=== PATIENT | male | born 1965 | race Caucasian/White ===

== ENCOUNTER 2016-08-17 18:32 | Inpatient (IN) | payer MEDICARE ==
[~2016-08-17] VITALS: Ht 185.4 cm; Wt 126.1 kg
[~2016-08-17 18:32] MED LIST: ALBU0.63 NEB; ALPR0.5T3 PO; ASPI81TA21 PO; ATOR80TA41 PO; AZIT250T74 PO; BENZ1CAP34 PO; CARV12.52 PO; CYCL1PAK PO; FURO20 PO; LISI-363 PO; METF-324 PO; NOVO7030P2 SQ; POTA-243 PO; TAB-TAB PO; TRAV0.00 EACH EYE; VITA-13 PO
[2016-08-17 18:34] VITALS: BP 176/101; PULSE 97; RESP 20; TEMP 98.7; O2SAT 99
[2016-08-17] MEDS ORDERED: METF1000 PO (18:42)
[2016-08-17] MEDS ORDERED: FURO80TA PO (18:42)
[2016-08-17] MEDS ORDERED: ATOR1TAB18 PO (18:42)
[2016-08-17] MEDS ORDERED: POTA10CA PO (18:42)
[2016-08-17] MEDS ORDERED: CARV12.52 PO (18:42)
[2016-08-17] MEDS ORDERED: LISI-515 PO (18:42)
[2016-08-17] MEDS ORDERED: ASPI1TAB69 PO (18:42)
[2016-08-17] MEDS ORDERED: TRAV0.00 EACH EYE (18:42)
[2016-08-17] MEDS ORDERED: ALPR0.5T3 PO (18:42)
[2016-08-17] MEDS ORDERED: NOVO7030P2 SQ (18:42)
--- NOTE | 2016-08-17 18:56 | PD ---
HPI Chief Complaint: Cardiac Complaint Time Seen by Provider: 18:56 Travel History International Travel<30 days: No Contact w/Intl Traveler<30days: No Traveled to known affect area: No History of Present Illness HPI 51-year-old male with history of CAD, CHF, ischemic cardiomyopathy with AICD presents to the emergency department by EMS for evaluation of AICD firing. The patient states that about 30 minutes ago he was sitting at a birthday constitution party talking to someone when he felt a shock all over his body that lasted about 1 second. States that afterward he began to have headache. States that he thinks his AICD may have fired, his device has never fired before. He denies any preceding symptoms, states he was feeling well. He denies any chest pain, shortness of breath, nausea, vomiting, abdominal pain, lightheadedness, dizziness, diaphoresis, numbness or tingling, weakness. He admits that he has not taken any of his medications for the past 10 days "just because I didn't feel like it." PCP Dr. Raphael. Customer Experience Leader Dr. Jose Monae. No other complaints. 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) Coronary Stent: Yes (x2) Social History Alcohol Use: No (quit 2000) Tobacco Use: Yes (PPD) Substance Use: No Allergies-Medications (Allergen,Severity, Reaction): Coded Allergies: Mevacor (Verified Allergy, Severe, 08/17/16) Reported Meds & Prescriptions Reported Meds & Active Scripts Active Reported Travatan Z Opth Drops (Travoprost) 0.004 % Soln 1 Drop EACH EYE HS Potassium Chloride ER (Potassium Chloride) 10 Meq Cap 10 Meq PO DAILY Metformin (Metformin HCl) 1,000 Mg Tab 1,000 Mg PO BIDPC With meals Lisinopril 20 Mg Tab 20 Mg PO DAILY Novolin 70-30 Inj (Insulin Human Isoph/Insulin Regular) 1,000 Unit/10 Ml Vial 1 Units SQ Furosemide 80 Mg Tab 80 Mg PO DAILY Carvedilol 12.5 Mg Tab 12.5 Mg PO BID Atorvastatin (Atorvastatin Calcium) 80 Mg Tab 80 Mg PO HS Aspirin 81 Mg Tabdr 81 Mg PO DAILY Alprazolam 0.5 Mg Tab 0.5 Mg PO BID PRN Review of Systems Except as stated in HPI: all other systems reviewed are Neg Physical Exam Narrative GENERAL: Well-nourished and well-developed pleasant patient in no acute distress who is nontoxic appearing. SKIN: Warm and dry. HEAD: Normocephalic and atraumatic. EYES: No injection, drainage, or hyphema noted. PERRLA. EOMI. ENT: No nasal drainage noted. Oropharynx is clear. NECK: Supple and the trachea is midline. CARDIOVASCULAR: Regular rate and rhythm. RESPIRATORY: Breath sounds are equal bilaterally with no accessory muscle use, wheezing, rhonchi, or crackles. GASTROINTESTINAL: Abdomen is soft, non-tender, and nondistended. MUSCULOSKELETAL: No obvious deformities, swelling, cyanosis, or ecchymosis is present throughout the upper and lower extremities. Patient has full range of motion without any signs of neurovascular compromise. NEUROLOGICAL: Awake, alert, and oriented. Normal speech and gait. Cranial nerves are grossly intact. Data Data Last Documented VS Vital Signs Date Time Temp Pulse Resp B/P Pulse Ox O2 Delivery O2 Flow Rate FiO2 08/17/16 21:45 97 20 167/105 97 Nasal Cannula 2 08/17/16 18:34 98.7 Orders Electrocardiogram (08/17/16 18:55) B-Type Natriuretic Peptide (08/17/16 18:55) Ckmb (Isoenzyme) Profile (08/17/16 18:55) Complete Blood Count With Diff (08/17/16 18:55) Comprehensive Metabolic Panel (08/17/16 18:55) Magnesium (Mg) (08/17/16 18:55) Prothrombin Time / Inr (Pt) (08/17/16 18:55) Act Partial Throm Time (Ptt) (08/17/16 18:55) Troponin I (08/17/16 18:55) Chest, Single Ap (08/17/16 18:55) Ecg Monitoring (08/17/16 18:55) Iv Access Insert/Monitor (08/17/16 18:55) Oximetry (08/17/16 18:55) Aspirin (Aspirin) (08/17/16 19:00) Sodium Chloride 0.9% Flush (Ns Flush) (08/17/16 19:00) CKMB (08/17/16 19:05) CKMB% (08/17/16 19:05) Electrocardiogram (08/17/16 20:53) Lorazepam Inj (Ativan Inj) (08/17/16 21:00) Lorazepam Inj (Ativan Inj) (08/17/16 21:00) Amiodarone Inj (Cordarone Inj) (08/17/16 21:00) Sodium Chloride 0.9% Flush (Ns Flush) (08/17/16 21:00) Lorazepam Inj (Ativan Inj) (08/17/16 21:15) Amiodarone Inj (Cordarone Inj) (08/17/16 21:01) Potassium Chlor 20 Meq Premix (Kcl 20 Me (08/17/16 21:15) Amiodarone Inj (Cordarone Inj) (08/17/16 21:30) Apixaban (Eliquis) (08/17/16 21:45) Metoprolol Tartrate (Lopressor) (08/17/16 21:45) Admit Order (Ed Use Only) (08/17/16 21:51) Consult Cardiology (08/17/16 ) Labs Laboratory Tests Test 08/17/16 19:05 White Blood Count 13.4 TH/MM3 Red Blood Count 5.17 MIL/MM3 Hemoglobin 15.1 GM/DL Hematocrit 43.3 % Mean Corpuscular Volume 83.7 FL Mean Corpuscular Hemoglobin 29.3 PG Mean Corpuscular Hemoglobin 35.0 % Concent Red Cell Distribution Width 14.5 % Platelet Count 242 TH/MM3 Mean Platelet Volume 8.8 FL Neutrophils (%) (Auto) 79.5 % Lymphocytes (%) (Auto) 10.8 % Monocytes (%) (Auto) 7.8 % Eosinophils (%) (Auto) 1.3 % Basophils (%) (Auto) 0.6 % Neutrophils # (Auto) 10.6 TH/MM3 Lymphocytes # (Auto) 1.4 TH/MM3 Monocytes # (Auto) 1.0 TH/MM3 Eosinophils # (Auto) 0.2 TH/MM3 Basophils # (Auto) 0.1 TH/MM3 CBC Comment DIFF FINAL Differential Comment Prothrombin Time 12.0 SEC Prothromb Time International 1.1 RATIO Ratio Activated Partial 25.9 SEC Thromboplast Time Sodium Level 134 MEQ/L Potassium Level 3.3 MEQ/L Chloride Level 99 MEQ/L Carbon Dioxide Level 27.1 MEQ/L Anion Gap 8 MEQ/L Blood Urea Nitrogen 11 MG/DL Creatinine 1.02 MG/DL Estimat Glomerular Filtration 77 ML/MIN Rate Random Glucose 274 MG/DL Calcium Level 8.4 MG/DL Magnesium Level 2.0 MG/DL Total Bilirubin 1.3 MG/DL Aspartate Amino Transf 13 U/L (AST/SGOT) Alanine Aminotransferase 21 U/L (ALT/SGPT) Alkaline Phosphatase 90 U/L Total Creatine Kinase 115 U/L Creatine Kinase MB 1.5 NG/ML Troponin I 0.03 NG/ML B-Type Natriuretic Peptide 837 PG/ML Total Protein 7.1 GM/DL Albumin 3.7 GM/DL MDM Medical Decision Making Medical Screen Exam Complete: Yes Emergency Medical Condition: Yes Differential Diagnosis AICD firing versus arrhythmia versus ACS versus CHF versus medication noncompliance Narrative Course 51-year-old male presents to the emergency department for evaluation of possible AICD firing. Patient is afebrile, vital signs are stable. He is slightly hypertensive with a blood pressure 176/101, admits to not taking any of his medications for the past 10 days. Physical examination is unremarkable. Patient is administered aspirin 325 mg orally. IV access is obtained, labs have been drawn and sent. [facility] was paged to come interrogate the device. CBC shows elevated white blood cell count of 13.4 CMP shows mild hypokalemia of 3.3 and hyperglycemia 274. Troponin is 0.03. BNP is elevated at 837. Coags are unremarkable. Chest x-ray is negative for any acute abnormalities. The medical information specialist authorization representative for [facility] interrogated the device and discerned that the patient was in fact shocked after going into A. fib with RVR with a ventricular rate of up to 181 bpm for 11 seconds. 2105 Patient was shocked again 4 times in about 10 minutes. Telemetry looks like wide complex V tach 160-200 bpm. He is administered Ativan 2mg IV and Amiodarone 150 mg IV. Patient has remained stable without any further shocks. The device was interrogated and found to be again Atrial Fibrillation with RVR with aberrant conduction. Dr. Whaley was consulted by my attending physician and recommends Amiodarone drip, Lopressors 50 mg BID, Eliquis 5 mg BID and admission to [facility]. I discussed the case with my attending physician Dr. Sheffield who is aware of the patients history, physical examination findings, and treatment plan. Physician Communication Physician Communication Dr. Sheffield spoke with Dr. Whaley who requests Amio drip, Eliquis, Lopressor and [facility] admission. I spoke with Dr. Lewis [facility] who agrees to admit the patient to their service. Diagnosis Primary Impression: Atrial fibrillation with RVR Additional Impression: AICD discharge Admitting Information Admitting Physician Requests: Admit Shira Ayoub Aug 17, 2016 18:56
[2016-08-17] MEDS ORDERED: SODIUM CHLORIDE 0.9% FLUSH 5 ML FLUSH IVF PRN ×2 (19:00→21:00)
[2016-08-17] MEDS ORDERED: ASPIRIN 325 MG TAB PO ONE (19:00)
[2016-08-17 19:01] VITALS: O2SAT 96
[2016-08-17 19:10] VITALS: BP 167/102; PULSE 90; RESP 16; O2SAT 96
--- NOTE | 2016-08-17 19:16 | RADRPT ---
EXAM DATE/TIME: 08/17/2016 19:04 [place] COMPARISON: CHEST SINGLE AP, November 14, 2015, 19:33. INDICATIONS : Chest pains. MEDICAL HISTORY : Cardiovascular disease. SURGICAL HISTORY : Defiberator, Stents placed in 1999 ENCOUNTER: Initial ACUITY: 1 day PAIN SCORE: 2/10 LOCATION: Left chest FINDINGS: There is some linear atelectasis along the minor fissure on the right side. No consolidative infiltr ate seen. Both hemidiaphragms are well delineated. The heart is mildly enlarged, similar in size an d configuration to prior exam 2016. Cardiac pacer leads in right atrium right ventricle. CONCLUSION: Mild atelectasis right midlung. Cardiomegaly, stable, without radiographic evidence of congestive fa ilure. Clemente Horton MD on August 17, 2016 at 19:14 Board Certified Radiologist. This report was verified electronically.
[2016-08-17 19:40] LABS: AUTOMATED NEUTROPHIL # 10.6 TH/MM3 (1.8-7.7); BASOPHIL # 0.1 TH/MM3 (0-0.2); BASOPHIL % 0.6 % (0.0-2.0); EOSINOPHIL # 0.2 TH/MM3 (0-0.4); EOSINOPHIL % 1.3 % (0.0-4.0); HEMATOCRIT 43.3 % (39.0-51.0); HEMO FLAGS DIFF FINAL; LYMPH % 10.8 % (9.0-44.0); LYMPHOCYTE # 1.4 TH/MM3 (1.0-4.8); MEAN CELL VOLUME 83.7 FL (80.0-100.0); MEAN CORPUSCULAR HEMOGLOBIN 29.3 PG (27.0-34.0); MONO % 7.8 % (0.0-8.0); NEUT % 79.5 % (16.0-70.0); PLATELET COUNT 242 TH/MM3 (150-450); RED BLOOD COUNT 5.17 MIL/MM3 (4.50-5.90); RED CELL DISTRIBUTION WIDTH 14.5 % (11.6-17.2); WHITE BLOOD COUNT 13.4 TH/MM3 (4.0-11.0)
[2016-08-17 19:46] LABS: APTT (PATIENT) 25.9 SEC (24.3-30.1); INTERNATIONAL NORMALIZED RATIO 1.1 RATIO
[2016-08-17 19:47] LABS: ANION GAP 8 MEQ/L (5-15); AST (GOT) 13 U/L (15-37); BICARBONATE 27.1 MEQ/L (21.0-32.0); BLOOD UREA NITROGEN 11 MG/DL (7-18); CHLORIDE 99 MEQ/L (98-107); GLOMERULAR FILTRATION RATE 77 ML/MIN (>89); POTASSIUM 3.3 MEQ/L (3.5-5.1); SODIUM (NA) 134 MEQ/L (136-145)
[2016-08-17 19:52] LABS: ALKALINE PHOSPHATASE 90 U/L (45-117); ALT (GPT) 21 U/L (12-78); CREATINE KINASE 115 U/L (39-308); TOTAL BILIRUBIN ADULT 1.3 MG/DL (0.2-1.0)
[2016-08-17 20:04] LABS: CKMB 1.5 NG/ML (0.5-3.6)
[2016-08-17] MEDS ORDERED: AMIODARONE INJ 150 MG in DEXTROSE 5% IN WATER 100ML INJ 97 ML IV ONE ×2 (21:00)
[2016-08-17] MEDS ORDERED: LORazepam 2 MG/ML VIAL IV PUSH ONE ×2 (21:00→21:15)
[2016-08-17] MEDS ORDERED: LORazepam 2 MG/ML VIAL ONE (21:00)
[2016-08-17] MEDS ORDERED: AMIODARONE HCL 150 MG/3 ML VIAL ONE (21:01)
[2016-08-17] MEDS ORDERED: POTASSIUM CHLOR 20 MEQ PREMIX 100 ML IV ONE (21:15)
--- NOTE | 2016-08-17 21:16 | PD ---
Physical Exam Narrative Patient was seen and examined with my neurosurgical physician assistant. Data Data Last Documented VS Vital Signs Date Time Temp Pulse Resp B/P Pulse Ox O2 Delivery O2 Flow Rate FiO2 08/17/16 21:45 97 20 167/105 97 Nasal Cannula 2 08/17/16 18:34 98.7 Orders Electrocardiogram (08/17/16 18:55) B-Type Natriuretic Peptide (08/17/16 18:55) Ckmb (Isoenzyme) Profile (08/17/16 18:55) Complete Blood Count With Diff (08/17/16 18:55) Comprehensive Metabolic Panel (08/17/16 18:55) Magnesium (Mg) (08/17/16 18:55) Prothrombin Time / Inr (Pt) (08/17/16 18:55) Act Partial Throm Time (Ptt) (08/17/16 18:55) Troponin I (08/17/16 18:55) Chest, Single Ap (08/17/16 18:55) Ecg Monitoring (08/17/16 18:55) Iv Access Insert/Monitor (08/17/16 18:55) Oximetry (08/17/16 18:55) Aspirin (Aspirin) (08/17/16 19:00) Sodium Chloride 0.9% Flush (Ns Flush) (08/17/16 19:00) CKMB (08/17/16 19:05) CKMB% (08/17/16 19:05) Electrocardiogram (08/17/16 20:53) Lorazepam Inj (Ativan Inj) (08/17/16 21:00) Lorazepam Inj (Ativan Inj) (08/17/16 21:00) Amiodarone Inj (Cordarone Inj) (08/17/16 21:00) Sodium Chloride 0.9% Flush (Ns Flush) (08/17/16 21:00) Lorazepam Inj (Ativan Inj) (08/17/16 21:15) Amiodarone Inj (Cordarone Inj) (08/17/16 21:01) Potassium Chlor 20 Meq Premix (Kcl 20 Me (08/17/16 21:15) ^ Medication Alert (08/17/16 21:22) ^ Discontinue (08/17/16 21:22) Amiodarone Inj (Cordarone Inj) (08/17/16 21:30) Vital Signs (Adult) KD.Q4H (08/17/16 21:22) Apixaban (Eliquis) (08/17/16 21:45) Metoprolol Tartrate (Lopressor) (08/17/16 21:45) Admit Order (Ed Use Only) (08/17/16 21:51) Consult Cardiology (08/17/16 ) Labs Laboratory Tests Test 08/17/16 19:05 White Blood Count 13.4 TH/MM3 Red Blood Count 5.17 MIL/MM3 Hemoglobin 15.1 GM/DL Hematocrit 43.3 % Mean Corpuscular Volume 83.7 FL Mean Corpuscular Hemoglobin 29.3 PG Mean Corpuscular Hemoglobin 35.0 % Concent Red Cell Distribution Width 14.5 % Platelet Count 242 TH/MM3 Mean Platelet Volume 8.8 FL Neutrophils (%) (Auto) 79.5 % Lymphocytes (%) (Auto) 10.8 % Monocytes (%) (Auto) 7.8 % Eosinophils (%) (Auto) 1.3 % Basophils (%) (Auto) 0.6 % Neutrophils # (Auto) 10.6 TH/MM3 Lymphocytes # (Auto) 1.4 TH/MM3 Monocytes # (Auto) 1.0 TH/MM3 Eosinophils # (Auto) 0.2 TH/MM3 Basophils # (Auto) 0.1 TH/MM3 CBC Comment DIFF FINAL Differential Comment Prothrombin Time 12.0 SEC Prothromb Time International 1.1 RATIO Ratio Activated Partial 25.9 SEC Thromboplast Time Sodium Level 134 MEQ/L Potassium Level 3.3 MEQ/L Chloride Level 99 MEQ/L Carbon Dioxide Level 27.1 MEQ/L Anion Gap 8 MEQ/L Blood Urea Nitrogen 11 MG/DL Creatinine 1.02 MG/DL Estimat Glomerular Filtration 77 ML/MIN Rate Random Glucose 274 MG/DL Calcium Level 8.4 MG/DL Magnesium Level 2.0 MG/DL Total Bilirubin 1.3 MG/DL Aspartate Amino Transf 13 U/L (AST/SGOT) Alanine Aminotransferase 21 U/L (ALT/SGPT) Alkaline Phosphatase 90 U/L Total Creatine Kinase 115 U/L Creatine Kinase MB 1.5 NG/ML Troponin I 0.03 NG/ML B-Type Natriuretic Peptide 837 PG/ML Total Protein 7.1 GM/DL Albumin 3.7 GM/DL MDM Supervised Visit with ZACHARIAH: Yes Differential Diagnosis Differential diagnosis including A. fib with RVR, ventricular tachycardia. Narrative Course Patient had 4 more episodes of defibrillator went off on him. The rhythm was wide complex tachycardia rate between 160 and 200. Ativan 1 mg IV given. Ativan 1 mg IV repeated. Amiodarone 150 mg IV given over 10 minutes. Amiodarone drip started. I spoke with Dr. devine, manager educational on-call. Advised Lopressor and Eliquis and [facility] admission. Nick Sheffield MD Aug 17, 2016 21:16
[2016-08-17 21:21] VITALS: BP 153/90; PULSE 97; RESP 16; O2SAT 99
[2016-08-17 21:45] VITALS: BP 167/105; PULSE 97; RESP 20; O2SAT 97
[2016-08-17] MEDS ORDERED: METOPROLOL TARTRATE 50 MG TAB PO ONE (21:45)
[2016-08-17] MEDS ORDERED: APIXABAN 5 MG TABLET PO ONE (21:45)
[2016-08-17] MEDS: AMIODARONE INJ 450 MG in DEXTROSE 5% IN WATE(EXCEL) INJ 241 ML IV SCH ×2 (21:47)
[2016-08-17] MEDS ORDERED: BISACODYL 10 MG SUPP PR PRN (23:15)
[2016-08-17] MEDS ORDERED: NALOXONE HCL 0.4 MG/ML AMP IV PRN (23:15)
[2016-08-17] MEDS ORDERED: SODIUM CHLORIDE 0.9% FLUSH 5 ML FLUSH FLUSH PRN (23:15)
--- NOTE | 2016-08-17 23:25 | HHI.HP ---
HPI Service [facility] Hospitalists Primary Care Physician Griffin Foley Jr, MD Admission Diagnosis Atrial Fibrillation w/ RVR, AICD Discharge Chief Complaint: AICD discharge Travel History International Travel<30 Days: No Contact w/Intl Traveler <30 Da: No Traveled to Known Affected Are: No History of Present Illness 51-year-old male with history of CAD, CHF, ischemic cardiomyopathy with AICD presents to the emergency department by EMS for evaluation of AICD firing. The patient states that about 30 minutes before coming to er, he was sitting at a birthday democrat talking to someone when he felt a shock all over his body that lasted about 1 second. States that afterward he began to have headache. States that he thinks his AICD may have fired, his device has never fired before. He denies any preceding symptoms, states he was feeling well. He denies any chest pain, shortness of breath, nausea, vomiting, abdominal pain, lightheadedness, dizziness, diaphoresis, numbness or tingling, weakness. He admits that he has not taken any of his medications for the past 10 days "just because I didn't feel like it." On interrogation of device had episode of atrial fib with rate >180 also some wide complex suggestive v tach ,cardiology consulted and started on amiodarone drip and b shravan and eliquis 5 bid and admitted. Review of Systems Cardiovascular: COMPLAINS OF: Palpitations Past Family Social History Past Medical History cad,s/p mi,dm,hypertension,parkinson,pneumonia,thyroid disease hyperlipid,chf, copd, Past Surgical History pacer/defib,stent times 2 Reported Medications novolin insulin,[id number] bid,lisinopril 20,lasix 80 [id number],xanax .5, Allergies: Coded Allergies: Mevacor (Verified Allergy, Severe, 08/17/16) Social History hx etoh in past smokes 1 ppd Physical Exam Vital Signs Vital Signs Date Time Temp Pulse Resp B/P Pulse Ox O2 Delivery O2 Flow Rate FiO2 08/17/16 21:45 97 20 167/105 97 Nasal Cannula 2 08/17/16 21:21 97 16 153/90 99 Nasal Cannula 2 08/17/16 19:10 90 16 167/102 96 Room Air 08/17/16 19:01 96 Room Air 08/17/16 18:34 98.7 97 20 176/101 99 Physical Exam GENERAL: This is a well-nourished, well-developed patient, in no apparent distress. SKIN: No rashes, ecchymoses or lesions. Cool and dry. HEAD: Atraumatic. Normocephalic. No temporal or scalp tenderness. EYES: Pupils equal round and reactive. Extraocular motions intact. No scleral icterus. No injection or drainage. ENT: Nose without bleeding, purulent drainage or septal hematoma. Throat without erythema, tonsillar hypertrophy or exudate. Uvula midline. Airway patent. NECK: Trachea midline. No JVD or lymphadenopathy. Supple, nontender, no meningeal signs. CARDIOVASCULAR: irreg and rhythm without murmurs, gallops, or rubs. RESPIRATORY: Clear to auscultation. Breath sounds equal bilaterally. No wheezes , rales, or rhonchi. GASTROINTESTINAL: Abdomen soft, non-tender, nondistended. No hepato-splenomegaly , or palpable masses. No guarding. MUSCULOSKELETAL: Extremities without clubbing, cyanosis, or edema. No joint tenderness, effusion, or edema noted. No calf tenderness. Negative Homans sign bilaterally. NEUROLOGICAL: Awake and alert. Cranial nerves II through XII intact. Motor and sensory grossly within normal limits. Five out of 5 muscle strength in all muscle groups. Normal speech. Laboratory Laboratory Tests Test 08/17/16 19:05 White Blood Count 13.4 Red Blood Count 5.17 Hemoglobin 15.1 Hematocrit 43.3 Mean Corpuscular Volume 83.7 Mean Corpuscular Hemoglobin 29.3 Mean Corpuscular Hemoglobin 35.0 Concent Red Cell Distribution Width 14.5 Platelet Count 242 Mean Platelet Volume 8.8 Neutrophils (%) (Auto) 79.5 Lymphocytes (%) (Auto) 10.8 Monocytes (%) (Auto) 7.8 Eosinophils (%) (Auto) 1.3 Basophils (%) (Auto) 0.6 Neutrophils # (Auto) 10.6 Lymphocytes # (Auto) 1.4 Monocytes # (Auto) 1.0 Eosinophils # (Auto) 0.2 Basophils # (Auto) 0.1 CBC Comment DIFF FINAL Differential Comment Prothrombin Time 12.0 Prothromb Time International 1.1 Ratio Activated Partial 25.9 Thromboplast Time Sodium Level 134 Potassium Level 3.3 Chloride Level 99 Carbon Dioxide Level 27.1 Anion Gap 8 Blood Urea Nitrogen 11 Creatinine 1.02 Estimat Glomerular Filtration 77 Rate Random Glucose 274 Calcium Level 8.4 Magnesium Level 2.0 Total Bilirubin 1.3 Aspartate Amino Transf 13 (AST/SGOT) Alanine Aminotransferase 21 (ALT/SGPT) Alkaline Phosphatase 90 Total Creatine Kinase 115 Creatine Kinase MB 1.5 Troponin I 0.03 B-Type Natriuretic Peptide 837 Total Protein 7.1 Albumin 3.7 Result Diagram: 08/17/16 1905 08/17/16 190 Imaging Last 24 hours Impressions Chest X-Ray 08/17/16 1855 Signed Impressions: Service Date/Time: Wednesday, August 17, 2016 19:04 - CONCLUSION: Mild atelectasis right midlung. Cardiomegaly, stable, without radiographic evidence of congestive failure. Clemente Horton MD Course in er received amidarone and ativan Assessment and Plan Problem List: (1) AICD discharge Status: Acute Plan: multiple firing of AICD probably due to patient stopping his medications 10 days ago in afib started on amidarone drip and lopressor 50 bid and eliquis 5 bid with cardiology consult (2) Atrial fibrillation with RVR Status: Acute Plan: as above (3) Hypertension Status: Chronic Plan: restart home meds (4) Diabetic nephropathy Status: Chronic Plan: sliding scale and restart metformin Assessment and Plan as above has elevation bnp probably due to stopping medications restart diuretic Code Status full Discussed Condition With patient Physician Certification 2 Midnight Certification Type: Admission for Inpatient Services Order for Inpatient Services The services are ordered in accordance with Medicare regulations or non- Medicare payer requirements, as applicable. In the case of services not specified as inpatient-only, they are appropriately provided as inpatient services in accordance with the 2-midnight benchmark. Estimated LOS (days): 3 3 days is the estimated time the patient will need to remain in the hospital, assuming treatment plan goals are met and no additional complications. Post-Hospital Plan: Not yet determined Josemanuel Lewis MD Aug 17, 2016 23:25
[2016-08-17 23:30] VITALS: BP 150/89; PULSE 80; RESP 18; O2SAT 96
[2016-08-17] MEDS ORDERED: DEXTROSE 50% IN WATER 50 ML VIAL(D50) IV PUSH PRN (23:45)
[2016-08-17] MEDS ORDERED: GLUCAGON 1 MG/ML VIAL OTHER PRN (23:45)
[2016-08-18] VITALS (25 sets, daily range): BP systolic 117–158; BP diastolic 75–96; PULSE 61–79; RESP 16–20; TEMP 97.7–98.5; O2SAT 92–100
[2016-08-18] MEDS: ALPRAZolam 0.5 MG TAB PO PRN (05:49)
[2016-08-18] MEDS: INSULIN NovoLIN REGULAR SUPPLEMENTAL SCALE SQ SCH ×2 (05:50→13:22)
[2016-08-18] MEDS: AMIODARONE INJ 450 MG in DEXTROSE 5% IN WATE(EXCEL) INJ 241 ML IV SCH ×2 (05:53)
[2016-08-18 07:42] LABS: AUTOMATED NEUTROPHIL # 8.6 TH/MM3 (1.8-7.7); BASOPHIL # 0.1 TH/MM3 (0-0.2); EOSINOPHIL # 0.2 TH/MM3 (0-0.4); EOSINOPHIL % 1.6 % (0.0-4.0); HEMATOCRIT 43.3 % (39.0-51.0); HEMO FLAGS DIFF FINAL; LYMPH % 13.7 % (9.0-44.0); LYMPHOCYTE # 1.6 TH/MM3 (1.0-4.8); MEAN CELL VOLUME 84.1 FL (80.0-100.0); MEAN CORPUSCULAR HEMOGLOBIN 29.1 PG (27.0-34.0); MEAN CORPUSCULAR HGB CONC 34.6 % (32.0-36.0); NEUT % 74.7 % (16.0-70.0); PLATELET COUNT 228 TH/MM3 (150-450); RED BLOOD COUNT 5.16 MIL/MM3 (4.50-5.90); RED CELL DISTRIBUTION WIDTH 14.5 % (11.6-17.2); WHITE BLOOD COUNT 11.6 TH/MM3 (4.0-11.0)
[2016-08-18 08:02] LABS: BICARBONATE 27.2 MEQ/L (21.0-32.0); POTASSIUM 3.7 MEQ/L (3.5-5.1)
--- NOTE | 2016-08-18 08:37 | HHI.PR ---
Subjective Remarks lying in bed. says he feels better. says he stopped taking his heart meds 10 days ago because they made him feel bad Objective Vitals heart reg lung cta abd s/nt ext no edema Vital Signs Date Time Temp Pulse Resp B/P Pulse Ox O2 Delivery O2 Flow Rate FiO2 08/18/16 06:00 70 08/18/16 05:00 72 08/18/16 04:00 98.2 66 18 117/76 95 08/18/16 04:00 Nasal Cannula 2.00 08/18/16 04:00 66 08/18/16 03:00 70 08/18/16 02:00 69 08/18/16 01:00 Nasal Cannula 2.00 08/18/16 01:00 98.0 71 20 135/96 92 08/18/16 01:00 71 08/18/16 00:14 79 19 142/78 98 Nasal Cannula 2 08/17/16 23:30 80 18 150/89 96 Nasal Cannula 2 08/17/16 21:45 97 20 167/105 97 Nasal Cannula 2 08/17/16 21:21 97 16 153/90 99 Nasal Cannula 2 08/17/16 19:10 90 16 167/102 96 Room Air 08/17/16 19:01 96 Room Air 08/17/16 18:34 98.7 97 20 176/101 99 08/17/16 08/17/16 08/18/16 15:00 23:00 07:00 Intake Total 440 ml Output Total 700 ml Balance -260 ml Intake Oral 240 ml IV Total 200 ml Output Urine Total 700 ml # Bowel Movements 0 Result Diagram: 08/18/16 0700 08/18/16 0700 Imaging Last 24 hours Impressions Chest X-Ray 08/17/16 0190 Signed Impressions: Service Date/Time: Wednesday, August 17, 2016 19:04 - CONCLUSION: Mild atelectasis right midlung. Cardiomegaly, stable, without radiographic evidence of congestive failure. Clemente Horton MD A/P Problem List: (1) AICD discharge Status: Acute Plan: Pt wtih ischemic cardiomyopathy and aicd stopped taking his medications 10 days ago due to "making me feel bad" Interogation found shock for afib/rvr and later 4 more shocks for a wct. cardiology notified and home meds resumed plus amiodarone gtt await further instruction per cardiology and d/c when ok with them. monitor bg and resume home meds as tolerated his bb/kelly/statin./diuretic started. addendum: pt says he takes levemir 28units qhs with novolin 70/30 ssi will just resume levemir and his metformin with ssi novology. (2) Atrial fibrillation with RVR Status: Acute Plan: as above (3) Hypertension Status: Chronic Plan: restart home meds (4) Diabetic nephropathy Status: Chronic Plan: seeabove (5) Cardiomyopathy Status: Chronic Plan: see above (6) Diabetes Status: Chronic Plan: see above Elkin Alberto MD Aug 18, 2016 08:37
[2016-08-18] MEDS ORDERED: CARVEDILOL 12.5 MG TAB PO SCH (09:00)
[2016-08-18] MEDS: ACETAMINOPHEN 325 MG TAB PO PRN ×2 (09:36→13:24)
[2016-08-18] MEDS: POTASSIUM CHLORIDE 10 MEQ CAP PO SCH (09:37)
[2016-08-18] MEDS: SODIUM CHLORIDE 0.9% FLUSH 5 ML FLUSH FLUSH SCH ×2 (09:39→21:00)
[2016-08-18] MEDS: FUROSEMIDE 80 MG TAB PO SCH (09:39)
[2016-08-18] MEDS: LISINOPRIL 20 MG TAB PO SCH (09:39)
[2016-08-18] MEDS: metFORMIN HCL 500 MG TAB PO SCH ×2 (09:54→17:56)
--- NOTE | 2016-08-18 11:03 | PD.CONS ---
HPI Service Cardiology Consult Requested By Primary Care Physician Griffin Foley Jr, MD History of Present Illness 51-year-old male with history of CAD, CHF, ischemic cardiomyopathy s/p AICD ([place]) presents to the emergency department by EMS for evaluation of AICD firing. He was found in Afib and RVR. HE HAS NOT BEIGN COMPLAINT WITH OUTPAIENT MEDICATIONS says " I am tired of taking all those pills". He stopped taking medications 10 days ago. He denies any chest pain, shortness of breath, nausea, vomiting, abdominal pain, lightheadedness, dizziness, diaphoresis, numbness or tingling, weakness. Cardiology consulted for afib management. In the ED given Cardizem, started on amiodarone drip and eliquis. CHADSVAsc 3. Review of Systems Consitutional: DENIES: Fatigue, Fever, Chills, Weight gain, Weight loss Eyes: DENIES: Amaurosis Fugax, Change in vision HEENT: DENIES: Lightheadedness, Change in hearing Respiratory: DENIES: See HPI, Cough, Snoring, Shortness of breath, Wheezing, Sputum production Cardiovascular: DENIES: See HPI, Chest pain, Palpitations, Syncope, Tachycardia Gastrointestinal: DENIES: Nausea, Vomiting, Change in bowel habits, Reflux, Bloody stools, Melena Genitourinary: DENIES: Urinary incontinence, Difficulty voiding Integumentary: DENIES: Rash Neurologic: DENIES: Tingling or numbness, Memory problems, Poor Balance, Stroke symptoms Musculoskeletal: DENIES: Joint pain, Muscle pain, Limited range of motion, Back pain Psychiatric: DENIES: Anxiety, Depression, Sleep disturbances Hematologic: DENIES: Bruising tendencies, Bleeding tendencies Endocrine: DENIES: Weight gain, Weight loss, Thyroid disease Past Family Social History Allergies: Coded Allergies: Mevacor (Verified Allergy, Severe, 08/17/16) Past Medical History cad,s/p mi,dm,hypertension,Parkinson,pneumonia,thyroid disease hyperlipidemia , chf,copd, Past Surgical History PCI AICD Reported Medications Reported Meds & Active Scripts Active Reported Travatan Z Opth Drops (Travoprost) 0.004 % Soln 1 Drop EACH EYE HS Potassium Chloride ER (Potassium Chloride) 10 Meq Cap 10 Meq PO DAILY Metformin (Metformin HCl) 1,000 Mg Tab 1,000 Mg PO BIDPC With meals Lisinopril 20 Mg Tab 20 Mg PO DAILY Novolin 70-30 Inj (Insulin Human Isoph/Insulin Regular) 1,000 Unit/10 Ml Vial 1 Units SQ Furosemide 80 Mg Tab 80 Mg PO DAILY Carvedilol 12.5 Mg Tab 12.5 Mg PO BID Atorvastatin (Atorvastatin Calcium) 80 Mg Tab 80 Mg PO HS Aspirin 81 Mg Tabdr 81 Mg PO DAILY Alprazolam 0.5 Mg Tab 0.5 Mg PO BID PRN Active Ordered Medications Current Medications Medications (Trade) Dose Ordered Sig/Kaylene Route Start Time Stop Time Status Last Admin (Cordarone Inj/ D5W ([place]) Inj) 250 ml @ 0 mls/hr CONTINUOUS IV 08/17/16 21:30 08/18/16 05:53 (Xanax) 0.5 mg BID PRN PO 08/17/16 23:15 08/18/16 05:49 (Lipitor) 80 mg HS PO 08/18/16 21:00 (Coreg) 12.5 mg BID PO 08/18/16 09:00 08/18/16 09:39 (Lasix) 80 mg DAILY PO 08/18/16 09:00 08/18/16 09:39 (Prinivil) 20 mg DAILY PO 08/18/16 09:00 08/18/16 09:39 (Glucophage) 1,000 mg BIDPC PO 08/18/16 09:00 08/18/16 09:54 (KCl) 10 meq DAILY PO 08/18/16 09:00 08/18/16 09:37 (Xalatan 0.005% Opth Soln) 1 drop HS EACH EYE 08/18/16 21:00 (NS Flush) 2 ml UNSCH PRN FLUSH 08/17/16 23:15 (NS Flush) 2 ml BID FLUSH 08/18/16 09:00 08/18/16 09:39 (Tylenol) 650 mg Q8HR PRN PO 08/17/16 23:15 08/18/16 09:36 (Dulcolax Supp) 10 mg DAILY PRN RI 08/17/16 23:15 (Narcan Inj) 0.4 mg UNSCH PRN IV 08/17/16 23:15 (D50w (Vial) Inj) 25 ml UNSCH PRN IV PUSH 08/17/16 23:45 (Glucagon Inj) 1 mg UNSCH PRN OTHER 08/17/16 23:45 Social History hx etoh in past smokes 1 ppd Physical Exam Vital Signs Vital Signs Date Time Temp Pulse Resp B/P Pulse Ox O2 Delivery O2 Flow Rate FiO2 08/18/16 08:00 98.2 67 18 127/80 97 08/18/16 06:00 70 08/18/16 05:00 72 08/18/16 04:00 98.2 66 18 117/76 95 08/18/16 04:00 Nasal Cannula 2.00 08/18/16 04:00 66 08/18/16 03:00 70 08/18/16 02:00 69 08/18/16 01:00 Nasal Cannula 2.00 08/18/16 01:00 98.0 71 20 135/96 92 08/18/16 01:00 71 08/18/16 00:14 79 19 142/78 98 Nasal Cannula 2 08/17/16 23:30 80 18 150/89 96 Nasal Cannula 2 08/17/16 21:45 97 20 167/105 97 Nasal Cannula 2 08/17/16 21:21 97 16 153/90 99 Nasal Cannula 2 08/17/16 19:10 90 16 167/102 96 Room Air 08/17/16 19:01 96 Room Air 08/17/16 18:34 98.7 97 20 176/101 99 Physical Exam GENERAL: Well-nourished, well-developed patient. SKIN: Warm and dry. HEAD: Normocephalic. EYES: No scleral icterus. No injection or drainage. NECK: Supple, trachea midline. No JVD or lymphadenopathy. CARDIOVASCULAR: Regular rate and rhythm without murmurs, gallops, or rubs. RESPIRATORY: Breath sounds equal bilaterally. No accessory muscle use. GASTROINTESTINAL: Abdomen soft, non-tender, nondistended. EXTREMITIES: No cyanosis, or edema. NEUROLOGICAL: Awake, alert, and oriented x 3. Non-focal. Laboratory Laboratory Tests Test 08/17/16 08/18/16 19:05 07:00 White Blood Count 13.4 11.6 Red Blood Count 5.17 5.16 Hemoglobin 15.1 15.0 Hematocrit 43.3 43.3 Mean Corpuscular Volume 83.7 84.1 Mean Corpuscular Hemoglobin 29.3 29.1 Mean Corpuscular Hemoglobin 35.0 34.6 Concent Red Cell Distribution Width 14.5 14.5 Platelet Count 242 228 Mean Platelet Volume 8.8 8.4 Neutrophils (%) (Auto) 79.5 74.7 Lymphocytes (%) (Auto) 10.8 13.7 Monocytes (%) (Auto) 7.8 9.0 Eosinophils (%) (Auto) 1.3 1.6 Basophils (%) (Auto) 0.6 1.0 Neutrophils # (Auto) 10.6 8.6 Lymphocytes # (Auto) 1.4 1.6 Monocytes # (Auto) 1.0 1.0 Eosinophils # (Auto) 0.2 0.2 Basophils # (Auto) 0.1 0.1 CBC Comment DIFF FINAL DIFF FINAL Differential Comment Prothrombin Time 12.0 Prothromb Time International 1.1 Ratio Activated Partial 25.9 Thromboplast Time Sodium Level 134 135 Potassium Level 3.3 3.7 Chloride Level 99 102 Carbon Dioxide Level 27.1 27.2 Anion Gap 8 6 Blood Urea Nitrogen 11 13 Creatinine 1.02 0.94 Estimat Glomerular Filtration 77 85 Rate Random Glucose 274 253 Calcium Level 8.4 8.3 Magnesium Level 2.0 Total Bilirubin 1.3 Aspartate Amino Transf 13 (AST/SGOT) Alanine Aminotransferase 21 (ALT/SGPT) Alkaline Phosphatase 90 Total Creatine Kinase 115 Creatine Kinase MB 1.5 Troponin I 0.03 B-Type Natriuretic Peptide 837 997 Total Protein 7.1 Albumin 3.7 Result Diagram: 08/18/16 0700 08/18/16 0700 Imaging Last Impressions Chest X-Ray 08/17/16 1855 Signed Impressions: Service Date/Time: Wednesday, August 17, 2016 19:04 - CONCLUSION: Mild atelectasis right midlung. Cardiomegaly, stable, without radiographic evidence of congestive failure. Clemente Horton MD Assessment and Plan Problem List: (1) Atrial fibrillation with RVR Assessment and Plan: 51 y/o M wit with cardiomyopathy admitted after AIDC shock in the setting of Afib with RVR and noncompliance with medication therapy. No cardiac complaints or sign of myocardial ischemia. He remains afebrile and hemodynamically stable. No shocks overnight, on Amio drip and OAC. Recommendations: D/C amio drip Increase home Coreg to 25mg PO BID Continue OAC Dr. Monae/Dr. Dawson will be back tomorrow. (2) AICD discharge (3) Cardiomyopathy (4) Diabetes (5) Hyperlipemia Code Status Full Code Discussed Condition With Patient Marty Simms MD Aug 18, 2016 11:03
--- NOTE | 2016-08-18 13:20 | EKG ---
Date Performed: 08/17/2016 Time Performed: 18:38:35 PTAGE: 51 years EKG: ELECTRONIC VENTRICULAR PACEMAKER ABNORMAL RHYTHM ECG Compared to prior tracing no significa nt change PREVIOUS TRACING : 11/15/2015 05.46 DOCTOR: Jose Monae Interpretating Date/Time 08/18/2016 13:15:48
--- NOTE | 2016-08-18 13:20 | EKG ---
Date Performed: 08/17/2016 Time Performed: 21:13:33 PTAGE: 51 years EKG: ELECTRONIC VENTRICULAR PACEMAKER ABNORMAL RHYTHM ECG Compared to prior tracing no significa nt change PREVIOUS TRACING 08/17/2016 @ 18.38.35 DOCTOR: Jose Monae Interpretating Date/Time 08/18/2016 13:15:39
[2016-08-18] MEDS ORDERED: DEXTROSE 50% IN WATER 50 ML VIAL(D50) IV PUSH PRN (14:45)
[2016-08-18] MEDS ORDERED: GLUCAGON 1 MG/ML VIAL OTHER PRN (14:45)
[2016-08-18] MEDS: INSULIN ASPART SUPPLEMENTAL SCALE SQ SCH ×2 (17:56→21:00)
[2016-08-18] MEDS: LATANOPROST 0.005% OPHT SOLN 2.5 ML BTL EACH EYE SCH (21:00)
[2016-08-18] MEDS: ATORVASTATIN 80 MG TAB PO SCH (21:27)
[2016-08-18] MEDS: CARVEDILOL 12.5 MG TAB PO SCH (21:27)
[2016-08-18] MEDS: INSULIN DETEMIR 100 UNITS/ML VIAL SQ SCH (21:28)
[2016-08-19] VITALS (26 sets, daily range): BP systolic 131–151; BP diastolic 78–105; PULSE 61–75; RESP 14–18; TEMP 97.7–98.3; O2SAT 97–99
[2016-08-19] MEDS: INSULIN ASPART SUPPLEMENTAL SCALE SQ SCH ×4 (07:00→21:46)
[2016-08-19] MEDS: CARVEDILOL 12.5 MG TAB PO SCH ×2 (08:11→21:33)
[2016-08-19] MEDS: metFORMIN HCL 500 MG TAB PO SCH ×2 (08:11→18:20)
[2016-08-19] MEDS: FUROSEMIDE 80 MG TAB PO SCH (08:12)
[2016-08-19] MEDS: POTASSIUM CHLORIDE 10 MEQ CAP PO SCH (08:12)
[2016-08-19] MEDS: LISINOPRIL 20 MG TAB PO SCH (08:12)
[2016-08-19] MEDS: SODIUM CHLORIDE 0.9% FLUSH 5 ML FLUSH FLUSH SCH ×2 (08:12→21:33)
[2016-08-19] MEDS: ALPRAZolam 0.5 MG TAB PO PRN (08:16)
--- NOTE | 2016-08-19 16:55 | HHI.PR ---
Subjective Remarks No shock from AICD today. Flat affect today. Per nursing, pt is despondent at times. Objective Vitals Vital Signs Date Time Temp Pulse Resp B/P Pulse Ox O2 Delivery O2 Flow Rate FiO2 08/19/16 14:02 97 Nasal Cannula 1.00 08/19/16 12:00 63 08/19/16 11:15 97.7 61 18 135/78 98 08/19/16 11:00 64 08/19/16 10:00 64 08/19/16 09:00 66 08/19/16 08:00 68 08/19/16 07:30 98.0 67 18 144/94 99 08/19/16 07:30 99 Nasal Cannula 1.00 08/19/16 07:00 63 08/19/16 05:00 63 08/19/16 04:00 61 08/19/16 03:00 64 08/19/16 03:00 64 08/19/16 03:00 64 131/83 99 08/19/16 02:00 61 08/19/16 01:00 66 08/19/16 00:00 66 08/18/16 23:00 97.8 66 128/75 100 08/18/16 23:00 66 08/18/16 22:00 70 08/18/16 21:00 70 08/18/16 20:00 75 08/18/16 19:00 Nasal Cannula 1.00 08/18/16 19:00 97.7 72 158/89 100 08/18/16 19:00 72 08/18/16 18:00 68 08/18/16 18:00 98 Nasal Cannula 1.00 08/18/16 17:00 62 08/18/16 08/18/16 08/19/16 15:00 23:00 07:00 Intake Total 1108 ml 240 ml Output Total 550 ml 400 ml Balance 558 ml -160 ml Intake Oral 960 ml 240 ml IV Total 148 ml Output Urine Total 550 ml 400 ml # Bowel Movements 0 Result Diagram: 08/18/16 0700 08/18/16 0700 Imaging Last 24 hours Impressions Chest X-Ray 08/17/16 0301 Signed Impressions: Service Date/Time: Wednesday, August 17, 2016 19:04 - CONCLUSION: Mild atelectasis right midlung. Cardiomegaly, stable, without radiographic evidence of congestive failure. Clemente Horton MD A/P Problem List: (1) AICD discharge Status: Acute Plan: Pt wtih ischemic cardiomyopathy and aicd stopped taking his medications 10 days ago due to "making me feel bad" Interogation found shock for afib/rvr and later 4 more shocks for a wct. cardiology notified and home meds resumed plus amiodarone gtt await further instruction per cardiology and d/c when ok with them. monitor bg and resume home meds as tolerated his bb/kelly/statin./diuretic started. addendum: pt says he takes levemir 28units qhs with novolin 70/30 ssi will just resume levemir and his metformin with ssi novology. 08/19/16 - cardiology increased pt's coreg - NO AICD firing today - tele: NSR - Dr. Monae to see pt in AM - anticipate d/c to home 08/20 (2) Atrial fibrillation with RVR Status: Acute Plan: as above (3) Depression Status: Acute Plan: - start lexapro 10mg - request psychiatry consult (4) Hypertension Status: Chronic Plan: restart home meds (5) Diabetic nephropathy Status: Chronic Plan: seeabove (6) Cardiomyopathy Status: Chronic Plan: see above (7) Diabetes Status: Chronic Plan: see above Problem Qualifiers (1) Depression: Alvaro Moore DO Aug 19, 2016 16:55
[2016-08-19] MEDS: ESCITALOPRAM OXALATE 10 MG TAB PO SCH (18:20)
[2016-08-19] MEDS: ACETAMINOPHEN 325 MG TAB PO PRN (18:29)
[2016-08-19] MEDS: LATANOPROST 0.005% OPHT SOLN 2.5 ML BTL EACH EYE SCH (21:33)
[2016-08-19] MEDS: ATORVASTATIN 80 MG TAB PO SCH (21:33)
[2016-08-19] MEDS: INSULIN DETEMIR 100 UNITS/ML VIAL SQ SCH (21:36)
[2016-08-20] VITALS (16 sets, daily range): BP systolic 127–146; BP diastolic 81–92; PULSE 57–77; RESP 14–20; TEMP 97.6–98.6; O2SAT 96–100
[2016-08-20] MEDS: INSULIN ASPART SUPPLEMENTAL SCALE SQ SCH ×2 (07:00→11:00)
[2016-08-20] MEDS: metFORMIN HCL 500 MG TAB PO SCH (08:34)
[2016-08-20] MEDS: SODIUM CHLORIDE 0.9% FLUSH 5 ML FLUSH FLUSH SCH (08:35)
[2016-08-20] MEDS: POTASSIUM CHLORIDE 10 MEQ CAP PO SCH (08:35)
[2016-08-20] MEDS: FUROSEMIDE 80 MG TAB PO SCH (08:35)
[2016-08-20] MEDS: CARVEDILOL 12.5 MG TAB PO SCH (08:36)
[2016-08-20] MEDS: ESCITALOPRAM OXALATE 10 MG TAB PO SCH (08:36)
[2016-08-20] MEDS: LISINOPRIL 20 MG TAB PO SCH (08:36)
[2016-08-20] MEDS ORDERED: LEVEMIR SQ (12:43)
[2016-08-20] MEDS ORDERED: CARV12.5 PO (12:43)
--- NOTE | 2016-08-20 12:56 | HHI.DCPOC ---
Discharge Care Plan Diagnosis: (1) Depression (2) AICD discharge (3) Atrial fibrillation with RVR (4) Cardiomyopathy (5) Diabetes Goals to Promote Your Health * To prevent worsening of your condition and complications * To maintain your health at the optimal level Directions to Meet Your Goals Take your medications as prescribed Follow your dietary instruction Follow activity as directed Keep your appointments as scheduled Take your immunizations and boosters as scheduled If your symptoms worsen call your PCP, if no PCP go to Urgent Care Center or Emergency Room Smoking is Dangerous to Your Health. Avoid second hand smoke Call the 24-hour hour crisis hotline for domestic abuse at Alvaro Moore DO Aug 20, 2016 12:56
--- NOTE | 2016-08-20 12:56 | HHI.DS ---
Discharge Summary Admission Date Aug 17, 2016 at 22:01 Discharge Date: Aug 20, 2016 Admitting Diagnosis Atrial Fibrillation w/ RVR, AICD Discharge (1) AICD discharge Diagnosis: Principal (2) Atrial fibrillation with RVR Diagnosis: Principal (3) Depression Diagnosis: Principal (4) Hypertension Diagnosis: Secondary (5) Diabetic nephropathy Diagnosis: Secondary (6) Cardiomyopathy Diagnosis: Secondary (7) Diabetes Diagnosis: Secondary Brief History 51-year-old male with history of CAD, CHF, ischemic cardiomyopathy with AICD presents to the emergency department by EMS for evaluation of AICD firing. The patient states that about 30 minutes before coming to er, he was sitting at a birthday [employer] talking to someone when he felt a shock all over his body that lasted about 1 second. States that afterward he began to have headache. States that he thinks his AICD may have fired, his device has never fired before. He denies any preceding symptoms, states he was feeling well. He denies any chest pain, shortness of breath, nausea, vomiting, abdominal pain, lightheadedness, dizziness, diaphoresis, numbness or tingling, weakness. He admits that he has not taken any of his medications for the past 10 days "just because I didn't feel like it." On interrogation of device had episode of atrial fib with rate >180 also some wide complex suggestive v tach ,cardiology consulted and started on amiodarone drip and b shravan and eliquis 5 bid and admitted. CBC/BMP: 08/18/16 0700 08/18/16 0700 Significant Findings Laboratory Tests Test 08/17/16 08/18/16 19:05 07:00 White Blood Count 13.4 TH/MM3 11.6 TH/MM3 (4.0-11.0) (4.0-11.0) Neutrophils (%) (Auto) 79.5 % 74.7 % (16.0-70.0) (16.0-70.0) Neutrophils # (Auto) 10.6 TH/MM3 8.6 TH/MM3 (1.8-7.7) (1.8-7.7) Monocytes # (Auto) 1.0 TH/MM3 1.0 TH/MM3 (0-0.9) (0-0.9) Prothrombin Time 12.0 SEC (9.8-11.6) Sodium Level 134 MEQ/L 135 MEQ/L (136-145) (136-145) Potassium Level 3.3 MEQ/L (3.5-5.1) Estimat Glomerular Filtration 77 ML/MIN (>89) 85 ML/MIN (>89) Rate Random Glucose 274 MG/DL 253 MG/DL (74-106) (74-106) Calcium Level 8.4 MG/DL 8.3 MG/DL (8.5-10.1) (8.5-10.1) Total Bilirubin 1.3 MG/DL (0.2-1.0) Aspartate Amino Transf 13 U/L (15-37) (AST/SGOT) B-Type Natriuretic Peptide 837 PG/ML 997 PG/ML (0-100) (0-100) Monocytes (%) (Auto) 9.0 % (0.0-8.0) Imaging Last Impressions Chest X-Ray 08/17/16 9095 Signed Impressions: Service Date/Time: Wednesday, August 17, 2016 19:04 - CONCLUSION: Mild atelectasis right midlung. Cardiomegaly, stable, without radiographic evidence of congestive failure. Clemente Horton MD PE at Discharge GENERAL: This is a well-nourished, well-developed patient, in no apparent distress. CARDIOVASCULAR: Regular rate and rhythm without murmurs, gallops, or rubs. RESPIRATORY: Clear to auscultation. Breath sounds equal bilaterally. No wheezes , rales, or rhonchi. GASTROINTESTINAL: Abdomen soft, non-tender, nondistended. Normal active bowel sounds MUSCULOSKELETAL: Extremities without clubbing, cyanosis, or edema. NEURO: Alert & Oriented x4 to person, place, time, situation. Moves all ext x4 Hospital Course (1) AICD discharge Status: Acute Plan: - Pt wtih ischemic cardiomyopathy and aicd - stopped taking his medications 10 days prior to admission due to "making me feel bad" - Interogation found shock for afib/rvr and later 4 more shocks - cardiology notified and home meds resumed plus amiodarone gtt, later weaned to off - coreg increased to 25mg BID by Cardiology - lisinopril, lipitor - discharge to home - f/u with [employer] Research Engineer, Dr. Monae, in 2 weeks (2) Atrial fibrillation with RVR Status: Acute Plan: as above (3) Depression Status: Acute Plan: - start lexapro 10mg - Pt seen by Psychiatry, Dr. Arevalo. Dr. Arevalo does NOT feel pt needs inpt services - f/u with [facility] in 1 week - pt declines SSRI (4) Hypertension Status: Chronic Plan: restart home meds (5) Diabetic nephropathy Status: Chronic Plan: seeabove (6) Cardiomyopathy Status: Chronic Plan: see above (7) Diabetes Status: Chronic Plan: see above Pt Condition on Discharge: Stable Discharge Disposition: Discharge Home Discharge Instructions DIET: Follow Instructions for: Heart Healthy Diet, Diabetic Diet Activities you can perform: Regular-No Restrictions Follow up Referrals: Cardiology - [address] Jose Monae PCP Follow-up - [address] Griffin Sauceda Psychiatry Adult - 1 Week with [facility] Psychiatry New Medications: Carvedilol (Coreg) 12.5 Mg Tab 25 MG PO BID CAD #30 Ref 0 TAB Insulin Detemir Inj (Levemir Inj) 1,000 unit/ 10 ML Vial 25 UNITS SQ HS dm #1 Ref 0 INJECTION Continued Medications: Alprazolam (Alprazolam) 0.5 Mg Tab 0.5 MG PO BID PRN ANXIETY Ref 0 TAB Aspirin (Aspirin) 81 Mg Tabdr 81 MG PO DAILY TAB Atorvastatin (Atorvastatin) 80 Mg Tab 80 MG PO HS Cholesterol Management #30 Ref 0 TAB Furosemide (Furosemide) 80 Mg Tab 80 MG PO DAILY #30 Ref 0 TAB Lisinopril (Lisinopril) 20 Mg Tab 20 MG PO DAILY #30 Ref 0 TAB Metformin (Metformin) 1,000 Mg Tab 1000 MG PO BIDPC With meals Blood Sugar Management #60 Ref 0 TAB Potassium Chloride ER (Potassium Chloride ER) 10 Meq Cap 10 MEQ PO DAILY Electrolyte Replacement #30 Ref 0 CAP Travoprost Opth Drops (Travatan Z Opth Drops) 0.004 % Soln 1 DROP EACH EYE HS Glaucoma #1 Ref 0 BOTTLE Discontinued Medications: Carvedilol (Carvedilol) 12.5 Mg Tab 12.5 MG PO BID #60 Ref 0 TAB Insulin Human Isophane-Regular 70-30 Inj (Novolin 70-30 Inj) 1,000 Unit/10 Ml Vial 1 UNITS SQ Blood Sugar Management Ref 0 ML Alvaro Moore DO Aug 20, 2016 12:56
[2016-08-20] MEDS ORDERED: ESCI10TA PO (13:12)
--- NOTE | 2016-08-20 13:39 | PD.CONS ---
Provisional Diagnosis Admission Date Aug 17, 2016 at 22:01 [place] I. Adjustment disorder with depression [place] II. Deferred [place] III. DM, CAD, HTN [place] IV. History of noncompliance with medical medication [place] V. 55 History of Present Illness Service Psychiatry Consult Requested By Primary Care Physician Griffin Foley Jr, MD HPI The patient is a 51-year-old man, domiciled alone in [place], on disability, single, with secondary history of depression, but no previous hospitalizations, no previous suicidal attempts, he has not being any psychotropic, with history medical history of CAD, CHF, ischemic cardiomyopathy with AICD. who presented to the emergency department by EMS for evaluation of AICD firing. as per H&P note "The patient states that about 30 minutes before coming to er, he was sitting at a birthday republican talking to someone when he felt a shock all over his body that lasted about 1 second. States that afterward he began to have headache. States that he thinks his AICD may have fired, his device has never fired before". Patient admits not being fully compliant with his medication, and since the patient was endorsing sadness after being hospitalized a consult was placed to psychiatry. On psychiatric evaluation today patient was found calm, cooperative and pleasant. Patient explains that his mood today is "great", he says that he is happy to be alive and be given another opportunity to continue with his life. He says that he was depressed right after being hospitalized "because I think I reexperienced the same emotions that I had when I had a massive heart attack years ago and I thought I would ". Patient says that he was very depressed in 2000 after his first heart attack and he visited psychiatry in [facility] and was put in Wellbutrin 150 mg twice a day which he took for about 4 years with good results. Patient is stays that he has been doing okay, he denies any depressive symptoms previously to this hospitalization. The patient is stays that he was doing actually very "and for been doing very good and with the belief that I am very smart I stop taking my medical medication, but that was a mistake and I learned the lesson". Patient reports that the depression doesn't fit in his life very well "because I am a very spiritual and congregation person, I go to buddhist every week, I read the Bible, but I also read many books and they have a very intellectually challenged life". At this moment the patient denies depressive symptoms, he denies anxiety, he denies perceptual disturbances , he denies suicidal or homicidal ideation, he denies visual and auditory hallucinations. Patient is a fully oriented 3. No gross cognitive impairment observed. He denies the use of illicit drugs and also denies the use of alcohol. Review of Systems Constitutional: DENIES: Diaphoretic episodes, Fatigue, Fever, Weight gain, Weight loss, Chills, Dizziness, Change in appetite, Night Sweats Endocrine: DENIES: Heat/cold intolerance, Polydipsia, Polyuria, Polyphagia Eyes: DENIES: Blurred vision, Diplopia, Eye inflammation, Eye pain, Vision loss , Photosensitivity, Double Vision Ears, nose, mouth, throat: DENIES: Tinnitus, Hearing loss, Vertigo, Nasal discharge, Oral lesions, Throat pain, Hoarseness, Ear Pain, Running Nose, Epistaxis, Sinus Pain, Toothache, Odynophagia Respiratory: DENIES: Apneas, Cough, Snoring, Wheezing, Hemoptysis, Sputum production, Shortness of breath Cardiovascular: DENIES: Chest pain, Palpitations, Syncope, Dyspnea on Exertion , PND, Lower Extremity Edema, Orthopnea, Claudication Gastrointestinal: DENIES: Abdominal pain, Black stools, Bloody stools, Constipation, Diarrhea, Nausea, Vomiting, Difficulty Swallowing, Anorexia Integumentary: DENIES: Abnormal pigmentation, Nail changes, Pruritus, Rash Hematologic/lymphatic: DENIES: Bruising, Lymphadenopathy Immunologic/allergic: DENIES: Eczema, Urticaria Neurologic: DENIES: Abnormal gait, Headache, Localized weakness, Paresthesias, Seizures, Speech Problems, Tremor, Poor Balance Psychiatric: DENIES: Anxiety, Confusion, Mood changes, Depression, Hallucinations, Agitation, Suicidal Ideation, Homicidal Ideation, Delusions Past Family Social History Coded Allergies: Mevacor (Verified Allergy, Severe, 08/17/16) Reported Medications Travoprost Opth Drops (Travatan Z Opth Drops)0.004 % Soln1 Drop EACH EYE HS #1 BOTTLE Ref 0 08/17/16 Potassium Chloride ER 10 Meq Cap10 Meq PO DAILY #30 CAP Ref 0 08/17/16 Metformin 1,000 Mg Tab1,000 Mg PO BIDPC #60 TAB Ref 0 With meals 08/17/16 Lisinopril 20 Mg Tab20 Mg PO DAILY #30 TAB Ref 0 08/17/16 Insulin Human Isophane-Regular 70-30 Inj (Novolin 70-30 Inj)1,000 Unit/10 Ml Vial1 Units SQ Ref 0 08/17/16 Furosemide 80 Mg Tab80 Mg PO DAILY #30 TAB Ref 0 08/17/16 Carvedilol 12.5 Mg Tab12.5 Mg PO BID #60 TAB Ref 0 08/17/16 Atorvastatin 80 Mg Tab80 Mg PO HS #30 TAB Ref 0 08/17/16 Aspirin 81 Mg Tabdr81 Mg PO DAILY 08/17/16 Alprazolam 0.5 Mg Tab0.5 Mg PO BID PRN (ANXIETY) Ref 0 08/17/16 Current Medications Medications (Trade) Dose Ordered Sig/Kaylene Route Start Time Stop Time Status Last Admin (Xanax) 0.5 mg BID PRN PO 08/17/16 23:15 08/19/16 08:16 (Lipitor) 80 mg HS PO 08/18/16 21:00 08/19/16 21:33 (Lasix) 80 mg DAILY PO 08/18/16 09:00 08/20/16 08:35 (Prinivil) 20 mg DAILY PO 08/18/16 09:00 08/20/16 08:36 (Glucophage) 1,000 mg BIDPC PO 08/18/16 09:00 08/20/16 08:34 (KCl) 10 meq DAILY PO 08/18/16 09:00 08/20/16 08:35 (Xalatan 0.005% Opth Soln) 1 drop HS EACH EYE 08/18/16 21:00 08/19/16 21:33 (NS Flush) 2 ml UNSCH PRN FLUSH 08/17/16 23:15 (NS Flush) 2 ml BID FLUSH 08/18/16 09:00 08/20/16 08:35 (Tylenol) 650 mg Q8HR PRN PO 08/17/16 23:15 08/19/16 18:29 (Dulcolax Supp) 10 mg DAILY PRN NE 08/17/16 23:15 (Narcan Inj) 0.4 mg UNSCH PRN IV 08/17/16 23:15 (Coreg) 25 mg BID PO 08/18/16 21:00 08/20/16 08:36 (Levemir Inj) 25 units HS SQ 08/18/16 21:00 08/19/16 21:36 (D50w (Vial) Inj) 25 ml UNSCH PRN IV PUSH 08/18/16 14:45 (Glucagon Inj) 1 mg UNSCH PRN OTHER 08/18/16 14:45 (Lexapro) 10 mg DAILY PO 08/19/16 17:00 08/20/16 08:36 Family History He denies Social History Patient was born in [place], but raised in [place], he was an adopted kid , he did not meet his biological family, he is now unemployed, he is on disability, his highest level of education is a PhD in education. Physical Exam Vital Signs Vital Signs Date Time Temp Pulse Resp B/P Pulse Ox O2 Delivery O2 Flow Rate FiO2 08/20/16 12:21 64 08/20/16 12:00 98.6 14 133/87 100 08/20/16 11:27 21 08/20/16 08:00 Room Air 08/19/16 20:00 2.00 I/O 08/19/16 08/19/16 08/20/16 08:00 16:00 00:00 Intake Total 240 ml 960 ml Output Total 400 ml 750 ml Balance -160 ml 210 ml Mental Status Examination Appearance man, age appearing, good hygiene, [facility], calm, cooperative and pleasant Speech: Unremarkable Orientation: x3 Memory: Unremarkable Thought Process: Logical Thought Content: Unremarkable Hallucination Type: None Suicidal Ideation: No Previous Suicide Attempts: No Homicidal Ideation: No Previous Homicide Attempts: No Insight: Good Judgement: WNL Affect: Good Mood: Appropriate Motor Activity: Normal gait Assessment & Plan Problem List: (1) Adjustment disorder with depressed mood Assessment & Plan: On psychiatric evaluation today the patient is calm, cooperative and pleasant, he does not present any evidence of objective or subjective symptomatology of depression, anxiety, madi or psychosis. The patient denies suicidal ideation, he denies visual and auditory hallucinations. He is highly possible that sadness and frustration express right after this hospitalization is consequence of adjustment after reexperiencing the trauma of being close to and loosing self-control. Several protective factors of suicidality and depression are identified, such as strongly use believe, his spirituality, high level of education, intellectual activities such as writing and reading congregation books. He does not make available psychiatric admission at this moment. He would benefit of outpatient psychiatric care for psychotherapy and to assess further need of psychotropics. Extensive support, motivation and psychoeducation were provided to the patient. Case discussed with primary treating physician. Consult appreciated. ICD Code: F43.21 Assessment & Plan Estimated LOS: days Brian Randle MD Aug 20, 2016 13:39
== END 2016-08-20 14:20 | disposition home or self-care (01) | DRG 310 ==
LOC: NEPE 18:32 → NEDA 22:01 → HCIS 08-18 00:30
PROVIDERS: ADMIT Hospitalist; ATTEND Hospitalist
PROC: 4B02XTZ Measurement of Cardiac Defibrillator, External Approach (ICD-10-PCS; principal; 2016-08-17)
DX: I48.91 Unspecified atrial fibrillation (principal); E11.21 Type 2 diabetes mellitus with diabetic nephropathy; G20 Parkinson's disease; E11.65 Type 2 diabetes mellitus with hyperglycemia; I50.9 Heart failure, unspecified; J44.9 Chronic obstructive pulmonary disease, unspecified; Z95.810 Presence of automatic (implantable) cardiac defibrillator; I25.10 Atherosclerotic heart disease of native coronary artery without angina pectoris; I25.5 Ischemic cardiomyopathy; F17.210 Nicotine dependence, cigarettes, uncomplicated; I25.2 Old myocardial infarction; H40.9 Unspecified glaucoma; I10 Essential (primary) hypertension; Z79.4 Long term (current) use of insulin; Z91.14 Patient's other noncompliance with medication regimen; E78.5 Hyperlipidemia, unspecified; E07.9 Disorder of thyroid, unspecified; F43.21 Adjustment disorder with depressed mood; E87.6 Hypokalemia
CPT/HCPCS: 71010; 80048; 80053; 82550; 82552; 82948; 83735; 83880; 84484; 85025; 85610; 85730; 93005; 96365; 96375; 96376; J0282; J1815; J2060; J3480; J7060

== ENCOUNTER 2017-04-23 14:05 | Emergency (ER) | payer MEDICARE ==
[~2017-04-23] VITALS: Ht 185.4 cm; Wt 122.0 kg
[~2017-04-23 14:05] MED LIST changes: -ALBU0.63 NEB; +ASPI1TAB69 PO; -ASPI81TA21 PO; +ATOR1TAB18 PO; -ATOR80TA41 PO; -AZIT250T74 PO; -BENZ1CAP34 PO; +CARV12.5 PO; -CARV12.52 PO; -CYCL1PAK PO; +ESCI10TA PO; -FURO20 PO; +FURO80TA PO; +LEVEMIR SQ; -LISI-363 PO; +LISI-515 PO; -METF-324 PO; +METF1000 PO; -NOVO7030P2 SQ; -POTA-243 PO; +POTA10CA PO; -TAB-TAB PO; -VITA-13 PO
[2017-04-23 14:38] VITALS: BP 146/88; PULSE 68; RESP 16; TEMP 98; O2SAT 99
[2017-04-23 14:43] VITALS: O2SAT 99
[2017-04-23] MEDS ORDERED: TETANUS/DIPHTHERIA TOXOID ADULT 0.5 ML VIAL IM ONE (14:45)
[2017-04-23] MEDS ORDERED: SODIUM CHLORIDE 0.9% FLUSH 10 ML FLUSH IV FLUSH PRN (14:45)
[2017-04-23] MEDS ORDERED: MORPHINE SULFATE 4 MG/ML INJ IV PUSH ONE (14:45)
[2017-04-23] MEDS ORDERED: ONDANSETRON HCL 4 MG/2 ML VIAL IVP ONE (14:45)
[2017-04-23] MEDS ORDERED: LIDOCAINE HCL 2% 50 ML VIAL NERV BLOCK ONE (14:45)
--- NOTE | 2017-04-23 14:48 | PD ---
HPI Chief Complaint: Fall Time Seen by Provider: 14:39 Travel History International Travel<30 days: No Contact w/Intl Traveler<30days: No Traveled to known affect area: No History of Present Illness HPI 51-year-old male presents to the verge department status post fall. Brought in by EMS status post falling in the 3 foot hole while showing a new ulnar around the house that he previously sold. Patient states that he was aware of the whole but while he was talking forgot it was there and fell forward hosing his injuries. Patient hit his nose and anterior face, is complaining of facial pain, headache, and neck pain. She also has a superficial abrasion to the left mid anterior dumont. Is also complaining of some pain in the left forearm which appears to be secondary to some superficial abrasions. Patient is brought in with cervical collar and backboard in place. He denies LOC. Denies dental injury. He is currently alert and oriented 3. He denies chest or abdominal pain. He is moving all extremities normally. Patient does have a pacemaker defibrillator which he states did not go off. He denies syncope. He remembers the fall and hitting the ground. Pain is mainly in the face and he describes it as a 7 out of 10. He is allergic to lovastatin. 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) Coronary Stent: Yes (x2) Social History Alcohol Use: No (quit 2000) Tobacco Use: Yes (PPD) Substance Use: No Allergies-Medications (Allergen,Severity, Reaction): Coded Allergies: lovastatin (Unverified Allergy, Severe, 03/04/17) Reported Meds & Prescriptions Reported Meds & Active Scripts Active Escitalopram (Escitalopram Oxalate) 10 Mg Tab 10 Mg PO DAILY Coreg (Carvedilol) 12.5 Mg Tab 25 Mg PO BID Reported Paroxetine (Paroxetine HCl) 10 Mg Tab 10 Mg PO DAILY Terazosin (Terazosin HCl) 2 Mg Cap 2 Mg PO HS Aspirin 81 Mg Chew 81 Mg CHEW DAILY Once Daily (Multivitamin) 1 Each Tablet Vitamin D3 (Cholecalciferol) 1,000 Unit Tab 1,000 Units PO DAILY Travatan Z Opth Drops (Travoprost) 0.004 % Soln 1 Drop EACH EYE HS Potassium Chloride ER (Potassium Chloride) 10 Meq Cap 10 Meq PO DAILY Metformin (Metformin HCl) 1,000 Mg Tab 1,000 Mg PO BIDPC With meals Lisinopril 20 Mg Tab 40 Mg PO DAILY Furosemide 80 Mg Tab 80 Mg PO DAILY Atorvastatin (Atorvastatin Calcium) 80 Mg Tab 80 Mg PO HS Alprazolam 0.5 Mg Tab 0.5 Mg PO BID PRN Review of Systems Except as stated in HPI: all other systems reviewed are Neg General / Constitutional: No: Fever Eyes: No: Visual changes HENT: No: Headaches Cardiovascular: No: Chest Pain or Discomfort Respiratory: No: Shortness of Breath Gastrointestinal: No: Abdominal Pain Genitourinary: No: Dysuria Musculoskeletal: No: Pain Skin: No Rash Neurologic: No: Weakness Psychiatric: No: Depression Endocrine: No: Polydipsia Hematologic/Lymphatic: No: Easy Bruising Physical Exam Narrative GENERAL: Patient appears shaken up but and in mild distress. SKIN: Warm and dry. Normal color. Normal turgor. Patient has a laceration through the right distal naris and tip of the nose is currently not bleeding. He has abrasions to the central forehead just above the bridge of the nose. He has some mild abrasions to the left forearm from the wrist to the elbow. Also has abrasions to the left anterior dumont per HEAD: Atraumatic. Normocephalic. Patient complains of tenderness with palpation of the bridge of the nose and forehead. EYES: Pupils equal and round. No scleral icterus. No injection or drainage. Ocular motions are equal bilaterally and without pain. No nystagmus is noted. ENT: No nasal bleeding or discharge. Mucous membranes pink and moist. No dental injury. Pharynx is clear. Airway is patent. NECK: Trachea midline. Cervical collar is maintained for CT clearance. CARDIOVASCULAR: Regular rate and rhythm. RESPIRATORY: No accessory muscle use. Clear to auscultation. Breath sounds equal bilaterally. GASTROINTESTINAL: Abdomen soft, non-tender, nondistended. Hepatic and splenic margins not palpable. MUSCULOSKELETAL: Extremities without clubbing, cyanosis, or edema. No obvious deformities. NEUROLOGICAL: Awake and alert. No obvious cranial nerve deficits. Motor grossly within normal limits. Five out of 5 muscle strength in the arms and legs. Normal speech. PSYCHIATRIC: Appropriate mood and affect; insight and judgment normal. Data Data Last Documented VS Vital Signs Date Time Temp Pulse Resp B/P (MAP) Pulse Ox O2 Delivery O2 Flow Rate FiO2 04/23/17 15:59 15 04/23/17 14:43 99 Room Air 04/23/17 14:38 98.0 68 146/88 (107) Orders Orders Complete Blood Count With Diff (04/23/17 14:39) Comprehensive Metabolic Panel (04/23/17 14:39) Iv Access Insert/Monitor (04/23/17 14:39) Ecg Monitoring (04/23/17 14:39) Oximetry (04/23/17 14:39) Morphine Inj (Morphine Inj) (04/23/17 14:45) Ondansetron Inj (Zofran Inj) (04/23/17 14:45) Sodium Chloride 0.9% Flush (Ns Flush) (04/23/17 14:45) Electrocardiogram (04/23/17 14:39) Ct Brain W/O Iv Contrast(Rout) (04/23/17 14:39) Ct Cerv Spine W/O Contrast (04/23/17 14:39) Ct Facial Bones W/O Iv Cont (04/23/17 14:39) Spine, Lumbar - Ltd (Ap & Lat) (04/23/17 14:39) Tetanus/Diphtheria Tox Adult (Tetanus/Di (04/23/17 14:45) Lidocaine 2% Inj (Xylocaine 2% Inj) (04/23/17 14:45) MDM Medical Decision Making Medical Screen Exam Complete: Yes Emergency Medical Condition: Yes Differential Diagnosis Trip and fall. Facial laceration. Facial contusion. Facial fracture. Neck pain. Neck fracture. Multiple abrasions. Narrative Course Patient is male who stable at time of exam Patient is cleared from the backboard with nursing assistance with cervical spine immobilization is maintained for CT scan. CT of the head and neck and facial bones are ordered. Physical lumbar spine are ordered as he is complaining of discomfort just above the pelvis. IV access is obtained and the patient is given 2 mg morphine IV as well as 4 mg Zofran IV. Patient is given a tetanus shot 0.5 mg IM. EKG is ordered as well as CBC and CMP. EKG shows electronic ventricular rhythm without acute changes. Lower lumbar spine films are negative for fracture. CT of the neck is negative. CT of the facial bones is negative. CT of the brain is normal. Lacerations repaired. Wound care is discussed with the patient. Patient to use Tylenol as needed for pain. Head injury signs and symptoms reviewed. Patient follow with his primary care physician or return to emergency department as needed. Procedures Procedure Narrative LACERATION LOCATION: Anterior nose/right naris LENGTH: 1 cm NUMBER OF STITCHES/YVONNE: 3 simple interrupted REPAIR: The area of the laceration was prepped with Betadine and sterilely draped. The laceration was infiltrated with 2 mL 2% lidocaine. The wound was copiously irrigated and explored without evidence of foreign body, tendon injury or neurovascular injury. The wound was closed using 6-0 Ethilon. This was a single layer repair. Antibiotic ointment was applied. The patient was advised to keep the wound site clean and dry. Patient tolerated the procedure well. Diagnosis Primary Impression: Fall Qualified Codes: W19.XXXA - Unspecified fall, initial encounter Additional Impressions: Contusion of face Qualified Codes: S00.83XA - Contusion of other part of head, initial encounter Simple laceration of face Qualified Codes: S01.81XA - Laceration without foreign body of other part of head, initial encounter Abrasions of multiple sites Referrals: Primary Care Physician Patient Instructions: Abrasion (ED), Concussion (ED), Facial Laceration (ED), General Instructions, Narcotic given in the ED Additional Instructions: Wound care is discussed with the patient. Patient to use Tylenol as needed for pain. Head injury signs and symptoms reviewed. Patient follow with his primary care physician or return to emergency department as needed. Med/Other Pt SpecificInfo: No Change to Meds, Wound Care Disposition: 01 DISCHARGE HOME Condition: Stable Roberto Carlos Griffith Apr 23, 2017 14:48
[2017-04-23] MEDS ORDERED: PARO10TA2 PO (15:14)
[2017-04-23] MEDS ORDERED: ASPI81CH CHEW (15:14)
[2017-04-23] MEDS ORDERED: ONCETAB7 (15:14)
[2017-04-23] MEDS ORDERED: VITA100064 PO (15:14)
[2017-04-23] MEDS ORDERED: TERA2CAP3 PO (15:14)
--- NOTE | 2017-04-23 15:49 | RADRPT ---
EXAM DATE/TIME: 04/23/2017 15:17 [facility] COMPARISON: No previous studies available for comparison. INDICATIONS : Lower back pain post fall today MEDICAL HISTORY : None. SURGICAL HISTORY : None. ENCOUNTER: Initial ACUITY: 1 day PAIN SCORE: 10/10 LOCATION: Lumbar spine FINDINGS: There is grade I anterolisthesis of L5 relative to S1 related to chronic appearing bilateral pars def ects. Alignment is otherwise satisfactory. There are degenerative changes throughout with small prima rily ventral endplate osteophytes throughout. There is mild wedging of T12 which may be developmental or chronic. No destructive changes. Dense atherosclerotic vascular calcifications are noted. Calcified gallstones are present. CONCLUSION: No acute bony process Aram Mesa MD on April 23, 2017 at 15:44 Board Certified Radiologist. This report was verified electronically.
[2017-04-23 15:59] VITALS: RESP 15
--- NOTE | 2017-04-23 16:02 | RADRPT ---
EXAM DATE/TIME: 04/23/2017 15:23 [facility] COMPARISON: No previous studies available for comparison. INDICATIONS : Patient fell in hole RADIATION DOSE: 26.36 CTDIvol (mGy) MEDICAL HISTORY : Hypertension. Parkinsons. Diabetes mellitus type 2. SURGICAL HISTORY : Pacemaker. ENCOUNTER: Initial ACUITY: 1 day PAIN SCORE: 7/10 LOCATION: facial TECHNIQUE: Volumetric scanning of the facial bones was performed. Using automated exposure control and adjustme nt of the mA and/or kV according to patient size, radiation dose was kept as low as reasonably achiev able to obtain optimal diagnostic quality images. DICOM format image data is available [employer] y for review and comparison. FINDINGS: ORBITS: The orbital and infraorbital osseous structures are intact. The retroconal structures have a normal configuration. No radiopaque foreign bodies are seen. NASAL BONE: The nasal bone and maxillary spine are intact ZYGOMATIC ARCHES: Symmetric without evidence of fracture. SINUSES: Minimal fluid or mucosal thickening in the base of the left maxillary sinus. NASAL CAVITY: The nasal septum is intact and midline. The lacrimal ducts are intact. SOFT TISSUES: No radiopaque foreign bodies seen. No soft-tissue swelling is seen. INTRACRANIAL: No intracranial air seen. CRIBIFORM PLATE: Grossly intact. CONCLUSION: No evidence of facial fracture Aram Mesa MD on April 23, 2017 at 15:56 Board Certified Radiologist. This report was verified electronically.
--- NOTE | 2017-04-23 16:06 | RADRPT ---
EXAM DATE/TIME: 04/23/2017 15:21 [facility] COMPARISON: No previous studies available for comparison. INDICATIONS : Patient fell in hole RADIATION DOSE: 30.66 CTDIvol (mGy) MEDICAL HISTORY : Parkinson's. Hypertension. Diabetes mellitus type 2. SURGICAL HISTORY : Pacemaker. ENCOUNTER: Initial ACUITY: 1 day PAIN SCALE: 5/10 LOCATION: neck TECHNIQUE: Volumetric scanning of the cervical spine was performed. Multiplanar reconstructions in the sagittal, coronal and oblique axial planes were performed. Using automated exposure control and adjustment o f the mA and/or kV according to patient size, radiation dose was kept as low as reasonably achievable to obtain optimal diagnostic quality images. DICOM format image data is available electronically f or review and comparison. FINDINGS: Vertebral body heights are maintained. Osseous structures are intact without evidence for acute bony fracture. Dens is intact. Sagittal alignment is maintained. There is a normal C1-2 relationship. Face ts are normally aligned. There is no significant prevertebral soft tissue hematoma. Moderate multilev el degenerative spondylosis of the cervical spine most prominently at C4-7 with disc space narrowing and disc osteophyte formation. Prominent left paracentral osteophytes at L2-3 with resultant severe n eural foraminal stenosis. No significant cervical adenopathy or gross mass. 1.2 cm left thyroid nodul e. Visualized lung apices are clear without pneumothorax. CONCLUSION: 1. No acute fracture or dislocation. 2. Moderate multilevel degenerative spondylosis of the lower cervical spine. 3. Severe left neural foraminal stenosis at L2-3 secondary to prominent paracentral posterior osteoph yte. 4. 1.2 cm left thyroid nodule. Aubrey Souza MD on April 23, 2017 at 16:01 Board Certified Radiologist. This report was verified electronically.
--- NOTE | 2017-04-23 16:09 | RADRPT ---
EXAM DATE/TIME: 04/23/2017 15:19 [facility] COMPARISON: No previous studies available for comparison. INDICATIONS : Patient fell in hole RADIATION DOSE: 56.35 CTDIvol (mGy) MEDICAL HISTORY : Parkinson's. Hypertension. Diabetes mellitus type 2. SURGICAL HISTORY : Pacemaker. ENCOUNTER: Initial ACUITY: 1 day PAIN SCALE: 6/10 LOCATION: cranial TECHNIQUE: Multiple contiguous axial images were obtained of the head. Using automated exposure control and adj ustment of the mA and/or kV according to patient size, radiation dose was kept as low as reasonably a chievable to obtain optimal diagnostic quality images. DICOM format image data is available electro nically for review and comparison. FINDINGS: Noncontrast axial head CT demonstrates the ventricles to be normal in size and configuration with a n ormal sulcal pattern. No acute intracranial hemorrhage, acute cortical infarction, mass or midline sh ift is seen. Old left occipital infarct is present. Posterior fossa structures are unremarkable. Bone windows are unremarkable. CONCLUSION: 1. No evidence of acute intracranial pathology. No masses are identified. Jose Boyd MD on April 23, 2017 at 16:07 Board Certified Radiologist. This report was verified electronically.
[2017-04-23 16:29] VITALS: BP 132/82
--- NOTE | 2017-04-23 16:36 | PD ---
Data Data Last Documented VS Vital Signs Date Time Temp Pulse Resp B/P (MAP) Pulse Ox O2 Delivery O2 Flow Rate FiO2 04/23/17 16:29 65 15 132/82 (99) 98 04/23/17 14:43 Room Air 04/23/17 14:38 98.0 Orders Orders Complete Blood Count With Diff (04/23/17 14:39) Comprehensive Metabolic Panel (04/23/17 14:39) Iv Access Insert/Monitor (04/23/17 14:39) Ecg Monitoring (04/23/17 14:39) Oximetry (04/23/17 14:39) Morphine Inj (Morphine Inj) (04/23/17 14:45) Ondansetron Inj (Zofran Inj) (04/23/17 14:45) Sodium Chloride 0.9% Flush (Ns Flush) (04/23/17 14:45) Electrocardiogram (04/23/17 14:39) Ct Brain W/O Iv Contrast(Rout) (04/23/17 14:39) Ct Cerv Spine W/O Contrast (04/23/17 14:39) Ct Facial Bones W/O Iv Cont (04/23/17 14:39) Spine, Lumbar - Ltd (Ap & Lat) (04/23/17 14:39) Tetanus/Diphtheria Tox Adult (Tetanus/Di (04/23/17 14:45) Lidocaine 2% Inj (Xylocaine 2% Inj) (04/23/17 14:45) MDM Supervised Visit with ZACHARIAH: Yes Narrative Course The history, exam, and medical decision-making in the associated mid-level provider note were completed with my assistance. I reviewed and agree with the findings presented. I attest that I had a [id number] encounter with the patient on the same day, and personally performed and documented my assessment and findings in the medical record. *My assessment and Findings: 51-year-old man with a slip and fall in a hole with facial injuries and lacerations. Looks well. Scans are negative. Laceration repaired. Outpatient follow-up. Diagnosis Primary Impression: Fall Qualified Codes: W19.XXXA - Unspecified fall, initial encounter Additional Impressions: Simple laceration of face Qualified Codes: S01.81XA - Laceration without foreign body of other part of head, initial encounter Abrasions of multiple sites Contusion of face Qualified Codes: S00.83XA - Contusion of other part of head, initial encounter Referrals: MANDI MALCOLM JR, MD (PCP) call for appointment Patient Instructions: General Instructions, Narcotic given in the ED, Concussion (ED), Abrasion (ED), Facial Laceration (ED) Departure Forms: Tests/Procedures Additional Instruction: Wound care is discussed with the patient. Patient to use Tylenol as needed for pain. Head injury signs and symptoms reviewed. Patient follow with his primary care physician or return to emergency department as needed. Disposition: 01 DISCHARGE HOME Condition: Stable Nestor Larson MD Apr 23, 2017 16:36
--- NOTE | 2017-04-24 14:28 | EKG ---
Date Performed: 04/23/2017 Time Performed: 15:03:52 PTAGE: 51 years EKG: ELECTRONIC VENTRICULAR PACEMAKER ABNORMAL RHYTHM ECG PREVIOUS TRACING : 08/17/2016 21.13 Since prior tracing, heart rate is slower. DOCTOR: Kike Matson Interpretating Date/Time 04/24/2017 14:26:26
== END 2017-04-23 16:44 | disposition home or self-care (01) ==
LOC: NEPD 14:05
DX: S01.81XA Laceration without foreign body of other part of head, initial encounter (principal); S00.83XA Contusion of other part of head, initial encounter; E04.1 Nontoxic single thyroid nodule; M48.061 Spinal stenosis, lumbar region without neurogenic claudication; R94.31 Abnormal electrocardiogram [ECG] [EKG]; W17.2XXA Fall into hole, initial encounter
CPT/HCPCS: 12011; 70450; 70486; 72100; 72125; 93005; 96374; 96375; 99285; J2270; J2405